=== PATIENT | female | born 1985 | race Caucasian/White ===

== ENCOUNTER 2016-09-26 10:13 | Inpatient (IN) | payer SELFPAY ==
[2016-09-26] MEDS ORDERED: BRETHINE IVP PRN (10:40)
[2016-09-26] MEDS ORDERED: MINERAL OIL PO PRN (10:40)
[2016-09-26] MEDS ORDERED: ePHEDrine SULFATE IV PRN (10:40)
[2016-09-26] MEDS ORDERED: STADOL IV PRN (10:40)
[2016-09-26] MEDS ORDERED: BRETHINE SUB-Q PRN (10:40)
[2016-09-26] MEDS ORDERED: NARCAN 0.4 MG/1 ML IV PRN (10:40)
[2016-09-26] MEDS ORDERED: XYLOCAINE 2% INFILTRATI ONE (10:40)
[2016-09-26] MEDS ORDERED: ZOFRAN IV PRN (10:40)
[2016-09-26] MEDS ORDERED: PITOCin/NS 20 UNIT/1000ML DRIP 20 UNITS/1,000 ML BAG IV SCH (11:00)
[2016-09-26] MEDS ORDERED: LACTATED RINGERS 1,000 ML IV SCH (11:00)
[2016-09-26 11:52] LABS: Hematocrit 35.9 % (30.3-42.9); Hemoglobin 11.7 gm/dl (10.1-14.3); Mean Corpuscular HGB Conc 33 % (30-34); Mean Corpuscular Hemoglobin 27 pg (28-32); Mean Corpuscular Volume 82 fl (79-97); Platelet Count 188 K/mm3 (140-440); Red Blood Count 4.37 M/mm3 (3.65-5.03); Red Cell Distribution Width 16.5 % (13.2-15.2); White Blood Count 10.1 K/mm3 (4.5-11.0)
[2016-09-26] MEDS: PITOCin/NS 30 UNIT/500ML 30 UNITS/500 ML BAG IV SCH ×2 (12:37→14:01)
--- NOTE | 2016-09-26 14:16 | History and Physical Report ---
History of Present Illness Date of examination: 09/26/16 Date of admission: 09/26/16 10:51 Chief complaint: Intense Labor Pains History of present illness: Care at [facility], course complicated by a UTI treated with Macrobid and Anemia. Past History Past Medical History: no pertinent history Past Surgical History: other (pancreas (2013)) Family/Genetic History: none Social history: single - Obstetrical History Expected Date of Delivery: 09/28/16 Actual Gestation: 39 Week(s) 5 Day(s) : 4 Para: 3 Hx # Term Pregnancies: 3 Number of Living Children: 3 #1 Gender: Male year: 2,[birth year] Birthweight: 3.175 kg Method of Delivery: Vaginal Gestational age at delivery: 41 Complications: none #2 Gender: Male year: 2,[birth year] Birthweight: 3.402 kg Method of Delivery: Vaginal Gestational age at delivery: 40 Complications: none #3 Infant Gender: Male year: 2,013 Birthweight: 3.629 kg Method of Delivery: Vaginal Gestational age at delivery: 39 Complications: none Medications and Allergies Allergies Allergy/AdvReac Type Severity Reaction Status Date / Time No Known Allergies Allergy Verified 09/26/16 10:50 Home Medications Medication Instructions Recorded Confirmed Last Taken Type No Known Home Medications [No 09/26/16 09/26/16 Unknown History Reported Home Medications] Active Meds: Active Medications Butorphanol Tartrate (Stadol) 2 mg IV Q2H PRN PRN Reason: Pain , Severe (7-10) Lactated Ringer's (Lactated Ringers) 1,000 mls @ 125 mls/hr IV DIRECT JENNIFER Last Admin: 09/26/16 12:35 Dose: 125 mls/hr Oxytocin/Sodium Chloride (Pitocin/Ns 20 Unit/1000ml Drip) 20 units in 1,000 mls @ 125 mls/hr IV DIRECT JENNIFER Oxytocin/Sodium Chloride (Pitocin/Ns 30 Unit/500ml) 30 units in 500 mls @ 4 mls /hr IV TITR JENNIFER PRN Reason: Protocol Last Admin: 09/26/16 14:01 Dose: 8 ml/hr, 8 mls/hr Mineral Oil (Mineral Oil) 30 ml PO QHS PRN PRN Reason: Constipation Naloxone HCl (Narcan 0.4 Mg/1 Ml) 0.1 mg IV Q2MIN PRN PRN Reason: Res Rate </= 8 or 02 SAT < 92% Ondansetron HCl (Zofran) 4 mg IV Q8H PRN PRN Reason: Nausea And Vomiting Review of Systems Musculoskeletal: other (states she fractured her right ankle 3 months ago; wearing a boot; not taking any medications) - Vital Signs Vital signs: Vital Signs Pulse Pulse Ox 81 97 09/26/16 10:34 09/26/16 10:34 Temp Pulse Resp BP Pulse Ox 98.7 F 71 18 98/74 98 09/26/16 12:25 09/26/16 14:06 09/26/16 12:25 09/26/16 12:25 09/26/16 14:06 Results Result Diagrams: 09/26/16 11:00 Abnormal lab results 09/26/16 Range/Units 11:00 MCH 27 L (28-32) pg RDW 16.5 H (13.2-15.2) % All other labs normal. Assessment and Plan A: IUP @ 39 5/7 Weeks Active Labor Category I Tracing Rt. ankle Injury GBS Negative P: Admit to L&D per routine orders Pitocin Augmentation
[2016-09-26] MEDS ORDERED: NORCO 5/325 PO PRN (16:08)
[2016-09-26] MEDS ORDERED: BENADRYL PO PRN (16:08)
[2016-09-26] MEDS ORDERED: LANSINOH TP PRN (16:08)
[2016-09-26] MEDS ORDERED: MILK OF MAGNESIA PO PRN (16:08)
[2016-09-26] MEDS ORDERED: DULCOLAX PR PRN (16:08)
[2016-09-26] MEDS ORDERED: PHENERGAN PR PRN (16:08)
[2016-09-26] MEDS ORDERED: TUCKS PAD TP PRN (16:08)
--- NOTE | 2016-09-26 16:08 | Procedure Note ---
OB Delivery Note - Delivery Date of Delivery: 09/26/16 (1547) Surgeon: BAMBI DING Estimated blood loss: 200cc - Vaginal Delivery presentation: vertex Delivery position: OA Intrapartum events: none Delivery induction: none Delivery augmentation: pitocin Delivery monitor: external FHT, external uterine Route of delivery: Delivery placenta: spontaneous Delivery cord: 3 umbilical vessels Episiotomy: none Delivery laceration: none Anesthesia: none Delivery comments: of a live 8'7" female infant over a intact perineum without pain control with Apgars of 7 and 9 at 1547 om 09/26/2016. Spontaneous delivery of placenta complete and intact with [place] side presenting at 1551. Fundus is firm and midline located 4 below the U. Lochia is scant. Cord blood collected. - A at 1 minute: 7 at 5 minutes: 9 Infant Gender: Female (8'7")
[2016-09-26] MEDS ORDERED: SODIUM CHLORIDE FLUSH SYRINGE 10 ML IV NR (17:00)
[2016-09-26] MEDS: COLACE PO SCH (22:03)
[2016-09-26] MEDS: MOTRIN PO SCH (23:00)
[2016-09-27] MEDS: MOTRIN PO SCH ×3 (05:00→21:17)
[2016-09-27 06:22] LABS: Hematocrit 34.6 % (30.3-42.9); Hemoglobin 11.2 gm/dl (10.1-14.3)
--- NOTE | 2016-09-27 10:29 | Progress Note ---
Assessment and Plan A: PPD #1 stable P: Discharge home this afternoon Subjective - Subjective Date of service: 09/27/16 Principal diagnosis: Patient reports: appetite normal [place]: doing well Objective - Vital Signs Latest vital signs: Vital Signs Temp Pulse Pulse Resp BP BP Pulse Ox 09/27/16 08:20 98.4 F 72 18 103/58 09/27/16 04:25 98.4 F 76 18 108/64 09/27/16 00:00 98.2 F 67 18 110/63 09/26/16 20:00 98.4 F 58 L 18 115/68 09/26/16 18:10 98.3 F 57 L 18 107/59 09/26/16 17:15 98.4 F 77 18 117/56 96 09/26/16 17:13 63 117/56 96 09/26/16 17:09 66 92 09/26/16 17:08 77 95 09/26/16 17:03 84 94 09/26/16 17:02 82 94 09/26/16 16:57 67 95 09/26/16 16:50 98.4 F 72 18 108/58 95 09/26/16 16:49 75 88 09/26/16 16:48 72 108/58 88 09/26/16 16:43 78 90 09/26/16 16:38 74 94 09/26/16 16:35 98.4 F 67 18 97/66 09/26/16 16:33 67 97/66 97 09/26/16 16:30 70 94 09/26/16 16:28 72 95 09/26/16 16:25 78 94 09/26/16 16:23 87 96 09/26/16 16:20 98.4 F 85 18 99/51 96 09/26/16 16:19 101 H 99/51 09/26/16 16:18 80 96 09/26/16 16:17 85 94 09/26/16 16:13 75 96 09/26/16 16:08 79 95 09/26/16 16:06 78 110/54 09/26/16 16:05 98.4 F 78 18 110/54 96 09/26/16 16:03 81 96 09/26/16 15:26 75 99 09/26/16 15:21 74 99 09/26/16 15:18 98.7 F 74 77 18 130/82 130/82 99 09/26/16 15:16 62 92 09/26/16 15:11 55 L 96 09/26/16 15:06 75 98 09/26/16 15:01 56 L 97 09/26/16 14:56 60 95 09/26/16 14:51 71 96 09/26/16 14:46 64 95 09/26/16 14:41 63 95 09/26/16 14:36 64 98 09/26/16 14:35 62 93 09/26/16 14:31 63 98 09/26/16 14:26 69 98 09/26/16 14:21 81 99 09/26/16 14:16 68 98 09/26/16 14:11 70 98 09/26/16 14:06 71 98 09/26/16 14:01 66 98 09/26/16 13:50 55 L 98 09/26/16 13:45 66 97 09/26/16 13:40 59 L 98 09/26/16 13:35 71 97 09/26/16 13:30 65 98 09/26/16 13:25 59 L 97 09/26/16 13:20 55 L 97 09/26/16 13:15 58 L 97 09/26/16 13:10 66 96 09/26/16 13:05 56 L 96 09/26/16 13:00 73 96 09/26/16 12:55 58 L 97 09/26/16 12:50 58 L 96 09/26/16 12:45 80 95 09/26/16 12:40 55 L 97 09/26/16 12:35 81 97 09/26/16 12:25 98.7 F 18 98/74 09/26/16 12:12 75 97 09/26/16 12:07 64 97 09/26/16 12:03 67 98/74 09/26/16 12:02 72 97 09/26/16 11:57 60 97 09/26/16 11:52 55 L 97 09/26/16 11:47 58 L 97 09/26/16 11:42 63 98 09/26/16 11:37 72 97 09/26/16 11:32 58 L 97 09/26/16 11:27 79 97 09/26/16 11:25 75 111/63 09/26/16 11:22 70 98 09/26/16 11:09 84 97 09/26/16 11:04 65 97 09/26/16 10:54 76 96 09/26/16 10:49 61 97 09/26/16 10:44 76 96 09/26/16 10:39 76 96 09/26/16 10:36 82 115/69 09/26/16 10:34 81 97 Intake and Output 09/26/16 09/27/16 09/27/16 22:59 06:59 14:59 Intake Total 120 120 120 Output Total 800 900 Balance -680 -780 120 Intake: Oral 120 120 120 Output: Urine 800 900 Void 800 900 Other: Total, Intake Amount 120 120 120 Total, Output Amount 600 900 # Voids Void 1 Estimated Blood Loss 200 - Exam Breasts: Present: deferred Cardiovascular: Present: Regular rate Abdomen: Present: soft Vulva: both: normal Uterus: Present: fundal height below umbilicus Extremities: Present: normal Deep Tendon Reflex Grade: Normal +2 - Labs Labs: Abnormal lab results 09/26/16 Range/Units 11:00 MCH 27 L (28-32) pg RDW 16.5 H (13.2-15.2) %
--- NOTE | 2016-09-27 10:31 | Discharge Summary ---
Providers - Providers Date of Admission: 09/26/16 10:51 Date of discharge: 09/27/16 Attending physician: KONG GREEN MD Primary care physician: [employer] Hospitalization Reason for admission: active labor Delivery: Episiotomy: none Laceration: none, 1st degree Other procedures: none complications: none Discharge diagnosis: IUP at term delivered baby: female Condition at discharge: Good Disposition: DC-01 TO HOME OR SELFCARE Plan - Provider Discharge Summary Activity: routine, no sex for 6 weeks, no strenuous exercise Diet: routine Instructions: routine Additional instructions: [] Smoking cessation referral if applicable(refer to patient education folder for contact #) [] Refer to [facility] Booklet Call your doctor immediately for: * Fever > 100.5 * Heavy vaginal bleeding ( >1 pad per hour) * Severe persistent headache * Shortness of breath * Reddened, hot, painful area to leg or breast * Drainage or odor from incision. * Keep incision clean and dry at all times and follow doctor's instructions regarding bathing/showering - Follow up plan Follow up: [facility] [Provider Group] - 6 Weeks
[2016-09-27] MEDS: PRENATAL VITAMIN PO SCH (17:26)
[2016-09-27] MEDS: COLACE PO SCH ×2 (17:27→21:17)
[2016-09-28] MEDS: MOTRIN PO SCH ×3 (00:31→14:49)
[2016-09-28] MEDS ORDERED: BOOSTRIX IM ONE (06:00)
[2016-09-28 09:05] VITALS: BP 99/58
[2016-09-28] MEDS: PRENATAL VITAMIN PO SCH (14:49)
[2016-09-28] MEDS: COLACE PO SCH (14:50)
== END 2016-09-28 17:00 | disposition home or self-care (01) | DRG 775 ==
LOC: TRG 10:13 → LD 10:51 → OB 18:19
PROVIDERS: ADMIT Obstetrics & Gynecology; ATTEND Obstetrics & Gynecology
PROC: 10E0XZZ Delivery of Products of Conception, External Approach (ICD-10-PCS; principal; 2016-09-26)
PROC: 3E0234Z Introduction of Serum, Toxoid and Vaccine into Muscle, Percutaneous Approach (ICD-10-PCS; 2016-09-28)
DX: O99.02 Anemia complicating childbirth (principal); O23.43 Unspecified infection of urinary tract in pregnancy, third trimester; O09.33 Supervision of pregnancy with insufficient antenatal care, third trimester; Z3A.39 39 weeks gestation of pregnancy; Z37.0 Single live birth; Z23 Encounter for immunization
CPT/HCPCS: 36415; 85014; 85018; 85027; 86850; 86900; 86901; 90471; 90715; 99211; G0463; J0595; J2590; J7120